=== PATIENT | male | born 1940 | race Caucasian/White ===

== ENCOUNTER 2022-04-24 10:26 | Outpatient (CLI) | payer MEDICARE, OTHER, SELFPAY ==
--- NOTE | ~2022-04-24 | US_ITS ---
EXAMINATION: US retroperitoneal comp DATE: 04/24/2022 11:15 INDICATION: BPH with lower urinary tract symptoms TECHNIQUE: Multiple grayscale and Doppler ultrasound images of the kidneys were obtained. COMPARISON: None. FINDINGS: The right kidney measures 10.7 x 5.2 cm and contains a 1.7 cm cyst. The left kidney measure s 9.1 x 5.4 x 5.2 cm and contains a 4.3 cm cyst. The kidneys demonstrate normal parenchymal echogenic ity. Bilateral ureteral jets are noted There is no hydronephrosis. The bladder is normal. IMPRESSION: 1. Unremarkable kidneys without hydronephrosis. Reviewed, dictated and finalized at location A.
== END 2022-04-24 10:27 | disposition home or self-care (01) ==
PROVIDERS: PCP Physician Assistant; Visit Provider Urology
DX: N40.1 Benign prostatic hyperplasia with lower urinary tract symptoms (principal)
CPT/HCPCS: 76770

== ENCOUNTER 2022-09-12 12:00 | Outpatient (RCR) | payer MEDICARE, OTHER, SELFPAY ==
--- NOTE | 2022-06-25 10:07 | PTOPEVAL1 ---
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 The CVA was about 1 year ago, and he has had PT since with in pt, [facility], out pt therapy. and daughter present during eval. They are caregivers to pt and assist him with all mobility and care. He uses a wheelchair for mobility, but they do go out into the community and remain active, doing home exercises, walking with a railing in the garage. The orders include aquatic therapy. With the evaluation, he has decreased strength of L LE and uses a sling on L UE due to flaccid. Sit to stand with pulling on // bar with R UE with moderate assist one; standing balance is decreased , leaning to the R and requires mod assist to stand upright; able to advance L LE with walking with substitution of leaning to the R and can hip flexion to move leg. He follows simple commands and is oriented, cooperative and wants to walk again. Skilled PT services are indicated for land and aquatic exercises- with the buoyancy effects of the water to allow motions of his L leg to increase strength, balance and mobility skills. and daughter are very supportive and assisting pt at home. Will progress his HEP and standing activity as he tolerates. Plan of Care Interventions Aquatic Therapy,Electrical Stimulation,Gait Training,Neuro Re-education,Patient/Caregiver Education,Therapeutic Activities,Therapeutic Exercise PT Services Indicated Yes Treatment Frequency and 2x/wk for 5 weeks Duration These treatments will address the objective and function
--- NOTE | 2022-07-25 10:41 | STOPEVAL1 ---
Assessment and note entered by Sakshi Ramirez PUBLIC HEALTH EPIDEMIOLOGIST Evaluation Information Assessment Status Evaluation Diagnosis Dysphagia Onset 06/20/21 Subjective Information reports that patient has always had swallowing issues since the stroke. Patient stated he feels his swallowing has worsened over the last six months. Patient knows there are foods that he has to avoid. Reported Pain Level Pain Score 0: Self Report Assessment ST Clinical Summary BEDSIDE SWALLOW EVALUATION This patient was accompanied to this outpatient evaluation by his who was the main reported. Patient reports frustration with coughing/choking mainly on meats that are shredded but admits to occasional coughing on other consistencies. Today he tolerated evaluation consistencies of thin water per cup, applesauce per spoon, and chela cracker in spite of lack of dentition. reports patient only wears dentition when going out, that he eats too quickly, and that he tends to put more food in his mouth than he can handle. All of these factors may contribute to his coughing/choking episodes. Results indicate this patient has mild dysphagia characterized as reduced strength in the swallowing muscles including base of tongue retraction, laryngeal elevation, and laryngeal adduction. Today, the patient and spouse were instructed in the use of head flexion when patient is swallowing to facilitate prevention of choking. Patient will be seen for Speech Therapy twice weekly with agreement to complete home exercise program three other days of the week for a total of five days of exercise. Additionally, therapist will instruct and reinforce use of safe swallowing strategies including eating more slowly, not filling the mouth with more than one bite before swallowing and consistent use of head flexion. VitalStim to the throat will also be instroduced in order to further improve the strength of the swallow. Plan of Care Interventions Treatment of Swallowing D Other Interventions VitalStim-neuromuscular electrical stimulation to the throat for strength. ST Services Indicated Y
--- NOTE | 2022-07-30 12:01 | PTOPPROG ---
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 Their son and daughter are helping at home with the exercises and activities. Assessment PT Clinical Summary João has received 8 PT sessions. He has improved in all areas since the initial evaluation. The aquatic exercises are doing well to assist him with movements of his leg and strength. He continues to have L side neglect. And is using a sling over his L arm for support. [place]an stim is facilitating muscle activity L LE His is very supportive and is the caregiver to pt. Goals were partially met. Continue therapy. Plan of Care Interventions Aquatic Therapy,Electrical Stimulation,Gait Training,Neuro Re-education,Patient/Caregiver Education,Therapeutic Activities,Therapeutic Exercise PT Services Indicated Yes Treatment Frequency and 2x/wk for 5 weeks Duration These treatments will address the objective and functional deficits as defined above. The patient will be advanced safely and appropriately in order for the patient to progress towards his/her prior level of function. Additional exercises will be introduced and as well as a comprehensive home exercise program upon discharge, if needed, ?to ensure carryover of functional gains achieved in the clinic. This treatment plan has been reviewed and agreement upon by the patient.
--- NOTE | 2022-08-22 16:34 | STOPDC ---
Assessment and note entered by JED Samaniego Evaluation Information Assessment Status Progress Reported Pain Level Pain Score 0: Self Report Pain Score 0: Self Report Assessment ST Clinical Summary TREATMENT SESSION AND PROGRESS NOTE Patient was seen for an initial evaluation and four treatment sessions focusing on increasing the strength of the swallow using swallowing strengthening exercises and VitalStim to the throat. Patient and report he has not choked on food or liquid in some time however he did get tickled on ice water last night. reports patient has been trying some new foods and exhibiting no difficulty with the various food items in spite of lack of dentition, including a Dragan sandwich on rye bread. Today the patient received 40 minutes of VitalStim to the throat at up to 13.0 mA with no adverse effects. The patient completed hard, effortful swallows and the Nini procedure with and without water 50+ times with no clinical signs of aspiration. He also completed other laryngeal elevation, laryngeal adduction, and base of tongue retraction exercises with good strength and effort. Since patient is completing exercises well, completes them with and without at home, and is exhibiting no clinical signs of aspiration, he is being discharged this date with goals achieved. Plan of Care ST Services Indicated No
[2022-09-03 14:19] VITALS: BP_SYST 90
--- NOTE | 2022-09-03 14:28 | PTOPPROG ---
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 Compared to the last reevaluation: gait has improved from 6 steps with mod assist x 2 to 30' with moderate assist of one, with hemicane and L AFO and SILVANO strap; is able to static stand without UE support; able to go up/down 4 steps with assist of 2; still requires mod assist sit/ stand and cues for control and correct technique. The AFO and SILVANO strap are assisting his ambulation. and family are assisting him at home with standing and exercises. They report he is doing well with in/out of the car, they assist him with L LE in/out car. The goals were partially met. Continue PT treatment--land and aquatic exercises. Plan of Care Interventions Aquatic Therapy,Electrical Stimulation,Neuro Re- education,Patient/Caregiver Education,Therapeutic Activities,Therapeutic Exercise PT Services Indicated Yes Treatment Frequency and 2x/wk for 5 weeks Duration These treatments will address the objective and functional deficits as defined above. The patient will be advanced safely and appropriately in order for the patient to progress towards his/her prior level of function. Additional exercises will be introduced and as well as a comprehensive home exercise program upon discharge, if needed, ?to ensure carryover of functional gains achieved in the clinic. This treatment plan has been reviewed and agreement upon by the patient.
--- NOTE | 2022-09-03 15:29 | OTOPEVAL1 ---
Assessment and note entered by Froylan Pascual, MALLY/Andrea, CHT Evaluation Information Assessment Status Evaluation Diagnosis CVA Onset 06/2021 Subjective Information , Nataliya, present with the patient today. She reports that João hasn't had any OT since his CVA. Has only been getting PT services to work on the leg, transfers, and balance. PT has been doing some aquatic sessions and he enjoys getting in the water. Reported Pain Level Pain Score 0: Self Report Pain Score 0: Self Report Additional Pain Score Comments Reporting no shoulder pain on the left side at rest. Reports increased shoulder pain with ROM, when his helping him get dressed, etc. Assessment OT Clinical Summary João is an 82 year-old male who had a CVA in June of 2021. Since then the upper back/neck, shoulder, and arm have become progressively tight due to non-use and decreased vision on the left side. At rest his head and neck are turned 45 degrees to the right and the arm rests in an internally rotated position on his lap. He will benefit from skilled OT for neck/shoulder/upper extremity stretching program, instruction in positioning to reduce further contractures, aquatic therapy for improved flexibility, adaptive ADL techniques to increase independence, and HEP instruction and progression as tolerated. Plan of Care Interventions Therapeutic Exercise,Manual Therapy,Neuro Re- education,Therapeutic Activities,Hot Pack/Cold Pack,Electrical Stimulation,Self-Care/Home Management,Aquatic Therapy OT Services Indicated Yes Treatment Frequency and 2x/week for 5 weeks. Duration 1x/week land. 1x/week aquatic. These treatments will address the objective and functional deficits as defined above. The patient will be advanced safely and appropriately in order for the patient to progress towards his/her prior level of function. Additional exercises will be introduced and as well as a comprehensive home exercise program upon discharge, if needed, ?to ensure carryover of functional gains achieved in the clinic. This treatment plan has been reviewed and agreement upon by the patient.
--- NOTE | 2022-09-13 15:26 | PCPTNOTE ---
This treatment is being continued on visit number [id number] . Please see documentation on both accounts to view progress. Completed interventions, outcomes, and problems have been marked as Inactive to facilitate the copying of the Care plan routine for recurring accounts.
--- NOTE | 2022-09-13 15:54 | PCOTNOTE ---
This treatment is being continued on visit number [id number]. Please see documentation on both accounts to view progress. Completed interventions, outcomes, and problems have been marked as Inactive to facilitate the copying of the Care plan routine for recurring accounts.
== END 2022-09-13 15:10 | disposition home or self-care (01) ==
LOC: ANHPT 12:00
PROVIDERS: PCP Physician Assistant; Visit Provider Hospitalist
DX: I63.9 Cerebral infarction, unspecified (principal)
CPT/HCPCS: 92526; 92610; 97110; 97112; 97113; 97116; 97162; 97166; 97530

== ENCOUNTER 2022-09-18 02:33 | Emergency (ER) | payer MEDICARE, OTHER, SELFPAY ==
[2022-09-18] VITALS (11 sets, daily range): BP systolic 143–156; BP diastolic 84–94; PULSE 82–93; RESP 16; TEMP 37.3–38.4; O2SAT 96–99
--- NOTE | ~2022-09-18 | XR_ITS ---
Portable chest x-ray Comparison: None Clinical History: Chest pain Findings: Lungs are clear, without focal consolidation or pleural effusion. Cardiomediastinal silho uette is unremarkable, with evidence of prior presumed CABG. Bones and soft tissues are unremarkable. Impression: Clear lungs. Status post probable prior CABG. Reviewed, dictated and finalized at [facility]. Impression: Clear lungs. Status post probable prior CABG.
--- NOTE | ~2022-09-18 | CT_ITS ---
Noncontrast CT scan of the cervical spine Technique: Multiple contiguous axial [address] images of the cervical spine were obtained and rec onstructed in 2D sagittal and coronal planes on the acquisition scanner. Dose reduction technique was used on this scan by utilizing automated exposure control, adjustment of the mA and/or kV according to patient size. Clinical History: Pain Findings: No fractures or dislocations. There is mild to moderate degenerative disc narrowing at C5- C6. There is facet joint degenerative changes of the cervical spine. There is bilateral neural forami nal narrowing at C3-C4. There is right neural foraminal narrowing at C5-C6. No prevertebral soft tiss ue swelling. Impression: No fracture or subluxation of the cervical spine. Mild to moderate degenerative spondylosis. Reviewed, dictated and finalized at [facility]. Impression: No fracture or subluxation of the cervical spine. Mild to moderate degenerative spondylosis.
--- NOTE | ~2022-09-18 | CT_ITS ---
CT head without contrast Indication: Trauma Technique: Serial scans were obtained through the brain without the administration of contrast. Dose reduction technique was used on this scan by utilizing automated exposure control and iterative recon struction technique. The dose-length product (DLP) was 1589.00 mGy-cm. Findings: There is no evidence of intracranial hemorrhage, mass lesion, or acute infarct. The ventri cles and subarachnoid spaces are dilated, consistent with mild atrophy. Low attenuation regions are seen within the periventricular white matter bilaterally, likely representing changes from chronic mi crovascular ischemic disease. There is no evidence of edema, mass effect or midline shift. The visu alized paranasal sinuses and mastoid air cells are clear. Impression: No intracranial hemorrhage, mass, or acute infarct. Atrophy and chronic white matter changes, as above. Reviewed, dictated and finalized at location . Impression: No intracranial hemorrhage, mass, or acute infarct. Atrophy and chronic white matter changes, as above.
--- NOTE | 2022-09-18 03:54 | ED.GENADULT ---
HPI - General Adult General Chief complaint: Fall Stated complaint: Fall, on blood thinner Time Seen by Provider: 09/18/22 03:22 History of Present Illness HPI narrative: Patient 82-year-old gentleman who presents the emergency department with chief complaint of right-sided chest pain. The patient reports that he was trying to transfer out of his wheelchair and when the chair fell out of the wheelchair and struck the right side of his chest. The patient states initially did not really hurt but reports that now it has become painful and worsening inspiration and reports that he also struck his head. Patient reports that he is on Plavix and aspirin Related Data Allergies Allergy/AdvReac Type Severity Reaction Status Date / Time Penicillins Allergy Unknown Unknown Verified 09/18/22 03:04 Course Vital Signs Vital signs: Vital Signs Temperature 38.4 C H 09/18/22 02:43 Pulse Rate 93 09/18/22 02:43 Respiratory Rate 16 09/18/22 02:43 Blood Pressure 151/84 H 09/18/22 02:43 Pulse Oximetry 96 09/18/22 02:43 Oxygen Delivery Room Air 09/18/22 02:43 Temperature 37.3 C 09/18/22 03:10 Pulse Rate 82 09/18/22 03:10 Respiratory Rate 16 09/18/22 02:43 Blood Pressure 143/86 H 09/18/22 03:10 Pulse Oximetry 98 09/18/22 03:10 Oxygen Delivery Room Air 09/18/22 02:43 Medical Decision Making [facility] Narrative Medical decision making narrative: Differential diagnosis includes rib fractures, pneumothorax, pulmonary contusions, head injury, subdural, subarachnoid, cervical spine fracture. Chest x-ray showed no evidence of displaced rib fracture and no evidence of pneumothorax. CT head and CT C-spine are currently read as negative Vital Signs Vital Signs: Vital Signs Temperature 38.4 C H 09/18/22 02:43 Pulse Rate 93 09/18/22 02:43 Respiratory Rate 16 09/18/22 02:43 Blood Pressure 151/84 H 09/18/22 02:43 Pulse Oximetry 96 09/18/22 02:43 Oxygen Delivery Room Air 09/18/22 02:43 Temperature 37.3 C 09/18/22 03:10 Pulse Rate 82 09/18/22 03:10 Respiratory Rate 16 09/18/22 02:43 Blood Pressure 143/86 H 09/18/22 03:10 Pulse Oximetry 98 09/18/22 03:10 Oxygen Delivery Room Air 09/18/22 02:43 Discharge Plan Discharge Clinical Impression: Contusion of right chest wall, Fall, Head injury Patient Disposition: Home, Self-Care Condition: Stable Instructions: Antibiotic Form, Head Injury (ED), Rib Contusion (ED) Prescriptions: New tramadol 50 mg tablet 50 mg PO Q6H PRN (Reason: pain) 3 Days Qty: 12 0RF Follow-up/Referrals: Forrest,REYES Mills Jr. [Primary Care Provider] - Time of Disposition: 05:56
[2022-09-18] MEDS: HYDROcodone/acetaminophen (*CRX) 5-325 MG TABLET 1 TAB PO (05:30)
== END 2022-09-18 06:26 | disposition home or self-care (01) ==
PROVIDERS: Emergency Provider Emergency Medicine; PCP Physician Assistant
DX: S20.211A Contusion of right front wall of thorax, initial encounter (principal); S09.90XA Unspecified injury of head, initial encounter; W05.0XXA Fall from non-moving wheelchair, initial encounter
CPT/HCPCS: 70450; 71045; 72125; 99284; A9270

== ENCOUNTER 2022-09-18 17:22 | Inpatient (IN) | payer MEDICARE, OTHER, SELFPAY ==
--- NOTE | ~2022-09-18 | XR_ITS ---
EXAMINATION: XR barium swallow modified DATE: 09/19/2022 14:30 INDICATION: Dysphagia. TECHNIQUE: The patient was given barium-containing material of multiple consistencies to swallow by t tom speech pathologist while I performed fluoroscopy. Fluoroscopy exposure time was 1.0 minutes. The n umber of fluoroscopy images saved to the PACS was 1. Dose-area product was 0.593 Gy-cm^2. FINDINGS: There is decreased oral transit time. There is reduced laryngeal elevation and reduced tongue base re traction. There is premature spill into the vallecula and piriform sinuses prior to the swallow. Ther e is piriform sinus residue and pharyngeal wall residue. There is laryngeal penetration with thin liq uids via cup. IMPRESSION: 1. Laryngeal penetration with thin liquids via cup. 2. Please refer to the speech therapy report for recommendations. Reviewed, dictated and finalized at location A.
--- NOTE | ~2022-09-18 | XR_ITS ---
EXAMINATION: XR chest 1V portable Exam Date/Time: 09/18/2022 19:17 CDT HISTORY: Hemoptysis following rib trauma Comparison: 09/18/2022 at 3:47 AM. RESULT: Lines, tubes, and devices: Intact sternotomy wires. Lungs and pleura: Slightly low volumes. Streaky bibasilar scar/atelectasis. Cardiomediastinal silhouette: Stable. Other: No acute osseous or upper abdominal finding. IMPRESSION: No acute cardiopulmonary process. Reviewed, dictated and finalized at location K.
--- NOTE | ~2022-09-18 | US_ITS ---
EXAMINATION:US venous doppler LE BI INDICATION:Deep venous thrombosis TECHNIQUE: Multiple grayscale, color flow and Doppler images of the right and left lower extremity de ep venous systems were obtained and reviewed. COMPARISON:No prior studies for comparison. FINDINGS: The common femoral, superficial femoral and popliteal veins demonstrate normal respiratory variation, augmentation and compressibility. Color flow is also seen within the posterior tibial, pe roneal, greater saphenous and profunda veins. IMPRESSION: 1: No lower extremity deep venous thrombosis. Reviewed, dictated and finalized at location A.
--- NOTE | ~2022-09-18 | CT_ITS ---
EXAMINATION: CTA chest PE protocol DATE: 09/18/2022 21:43 INDICATION: Hemoptysis. recent R ant rib injury. TECHNIQUE: Computed tomography angiography (CTA) of the chest was performed with 100 mL Omnipaque-350 intravenous contrast timed to evaluate the pulmonary arteries. Coronal maximum intensity projection 3D-reconstructions were created by the technologist. The dose-length product (DLP) was 626.81 mGy-cm. Automated exposure control and iterative reconstruction technique were employed. COMPARISON: X-ray chest, same date. FINDINGS: Lung parenchyma and airways: Small focus of airway debris in the upper trachea. Fine and coarse retic ular opacities with surrounding groundglass opacities in the dependent right lung. Bibasilar scar and atelectasis. Calcified pulmonary granulomas. Pleura: Unremarkable. Thoracic inlet, axillae and chest wall: Intact median sternotomy wires. Thoracic aorta: Mild ectasia and arch calcification. Mediastinum: Central pulmonary artery dilation as can be seen with pulmonary arterial hypertension. Heart and pericardium: Mild cardiomegaly. Coronary artery calcifications: Mild. Upper abdomen: No significant finding. Bones: No acute osseous finding. Pulmonary arteries: Study quality: Adequate. Multiple segmental and subsegmental emboli are present i n most lobes, with the exception of the right middle lobe. No large central embolus. Small saddle emb olus straddling right upper lobe and superior segment right lower lobe segmental branches. Occlusive emboli are present in right lower lobe segmental branches. The RV/LV ratio is less than 1. No septal bowing. No hepatic vein reflux. IMPRESSION: Multiple bilateral segmental and subsegmental pulmonary emboli, overall moderate clot burden. Occlusi ve segmental pulmonary emboli present in the right lower lobe where there is likely pulmonary infarct affecting the posterior/basal segments. No current evidence of right heart strain. Small focus of ae rated secretion/debris in the upper trachea. Results reported telephonically to Dr. Badillo by Dr. Ordonez at 10:10 PM on 09/18/2022. Reviewed, dictated and finalized at location K. IMPRESSION: Multiple bilateral segmental and subsegmental pulmonary emboli, overall moderat e clot burden. Occlusive segmental pulmonary emboli present in the right lower lobe where there is likely pulmonary infarct affecting the posterior/basal segm ents. No current evidence of right heart strain. Small focus of aerated secreti on/debris in the upper trachea. Results reported telephonically to Dr. Badillo by Dr. Ordonez at 10:10 PM on 023.
--- NOTE | ~2022-09-18 | US_ITS ---
EXAMINATION: US venous doppler UE DATE: 09/20/2022 14:29 INDICATION: Acute pulmonary emboli. Left upper limb weakness and mobility. TECHNIQUE: Grayscale ultrasound images without and with compression and Doppler ultrasound images of the left upper extremity veins were obtained. COMPARISON: None. FINDINGS: The visualized portions of the left internal jugular vein, subclavian vein, axillary vein, brachial v eins, basilic vein, cephalic vein, radial vein, and ulnar vein are patent. IMPRESSION: 1. No deep venous thrombosis. Reviewed, dictated and finalized at location A.
[2022-09-18 17:32] VITALS: BP 142/75; PULSE 77; RESP 16; TEMP 37; O2SAT 100
[2022-09-18 21:05] LABS: Basophils Percent Auto 0.3 % (0.2-1.2); Hematocrit 41.7 % (42.0-52.0); Hemoglobin 13.4 g/dL (14.0-18.0); Immature Granulocyte Absolute 0.07 K/mm3 (0.00-0.031); Immature Granulocyte Percent A 0.6 % (0-0.5); Mean Corpuscular HGB Conc 32.1 g/dl (32-36); Mean Corpuscular Hemoglobin 29.5 pg (26-34); Mean Corpuscular Volume 91.6 fl (80-100); Mean Platelet Volume 10.8 fl (7.4-10.4); Monocytes Absolute Auto 1.6 K/mm3 (0.1-0.6); Monocytes Percent Auto 12.7 % (2.6-8.5); Neutrophils Absolute Auto 9.4 K/mm3 (1.3-6.7); Neutrophils Percent Auto 77.4 % (45.5-73.1); Platelet Count Result 188 k/mm3 (150-375); Red Blood Count 4.55 M/mm3 (4.6-6.20); White Blood Count 12.2 K/mm3 (4.5-10.0)
--- NOTE | 2022-09-18 21:05 | ED.GENADULT ---
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 Patient fell out of his Wheelchair yesterday. He was then seen in our emergency department where his workup was negative for traumatic injuries. He was discharged home his family feels that he has not returned to his baseline. Additionally his has noted that he has had hemoptysis. He has been unable to use his incentive spirometer as he is in too much pain when he breathes in. Patient is denying fevers, cough, shortness of breath, abdominal pain. She did note that his urine seemed very dark. He denies urinary urgency frequency or dysuria. Patient is on aspirin and Plavix for heart disease. Related Data Allergies Allergy/AdvReac Type Severity Reaction Status Date / Time Penicillins Allergy Unknown Unknown Verified 09/18/22 17:36 REPLACED BY [facility] Past Medical History Medical History CAD (coronary artery disease) CVA (cerebral vascular accident) Social History Social History (Updated 09/18/22 @ 23:11 by Lalo Conley MD) Social History: Denies drugs alcohol tobacco Exam Narrative: APPEARANCE: No apparent distress. Head: atraumatic. EYES: EOMI, NOSE: Atraumatic NECK: Trachea midline RESPIRATORY: No increased rate of breathing clear to auscultation CARDIOVASCULAR: RRR,, no peripheral edema, tenderness palpation with right anterior chest wall with no overlying skin changes ABDOMINAL: Non-distended MUSCULOSKELETAl: No obvious deformities NEURO: Alert. left-sided hemiplegia SKIN:: Warm, dry. Normal color PSYCHIATRIC: Normal affect Course Vital Signs Vital signs: Vital Signs Temperature 98.6 F 09/18/22 17:32 Pulse Rate 77 09/18/22 17:32 Respiratory Rate 16 09/18/22 17:32 Blood Pressure 142/75 H 09/18/22 17:32 Pulse Oximetry 100 09/18/22 17:32 Oxygen Delivery Room Air 09/18/22 17:32 Temperature 98.6 F 09/18/22 17:32 Pulse Rate 77 03/15/23 17:32 Respiratory Rate 16 09/18/22 17:32 Blood Pressure 142/75 H 09/18/22 17:32 Pulse Oximetry 100 09/18/22 17:32 Oxygen Delivery Room Air 09/18/22 17:32 Medical Decision Making MDM Narrative Medical decision making narrative: -Presentation: 82-year-old male bouncing back with chest pain following a fall. Patient has been having hemoptysis, he is relatively immobile due to his CVA. Lab work, CT PE and urinalysis have been ordered. -DDX includes but is not limited to: Rib fracture with lung injury, pneumonia,pulmonary embolism, UTI -Co-morbidities complicating care: CVA with left-sided hemiplegia -Social determinants of health: patient lives with his who is his primary glass cutter. He is retired. -External Chart Review: Previous ER documents -Hx from independent Sources: Ольга -Discussion of Management/Consultants:Ric -hospitalist -Independent interpretation of studies: white blood cell count is 12.2. Metabolic panelwas within normal limits. urine was positive for 21-50 rbc's but negative nitrite, leuk esterase and bacteria. Viral swabs were negative. Independent EKG interpretation: Rhythm [sinus], Rate [], Ronce[place] -[normal], TN -[normal], QRS [narrow], QTC [normal], T waves -[negative for concerning inversions], ST Segments - [Negative for concerning elevations] Final interpretations: [Normal Sinus Rhythm] Chest xray was negative. CT PE was interpreted as: Multiple bilateral segmental and subsegmental pulmonary emboli, overall moderate clot burden. Occlusive segmental pulmonary emboli present in the right lower lobe where there is likely pulmonary infarct affecting the posterior/basal segments. No current evidence of right heart
[2022-09-18 21:23] LABS: Alanine Aminotransferase 14 U/L (6-50); Albumin Level 4.2 g/dL (3.5-5.1); Alkaline Phosphatase 49 U/L (38-126); Anion Gap 5 mmol/L (8-16); Aspartate Amino Transferase 23 U/L (17-59); Blood Urea Nitrogen 21 mg/dL (9-20); Calcium 8.8 mg/dL (8.4-10.2); Carbon Dioxide 28 mmol/L (22-30); Chloride 102 mmol/L (98-107); Estimated CRCL calculation 58 ml/min; Estimated Glomerular Filt Rate > 60; Glucose 136 mg/dL (65-110); Lipase 28 U/L (23-300); Magnesium 2.1 mg/dL (1.6-2.3); Potassium 4.4 mmol/L (3.4-5.0); Sodium 135 mmol/L (137-145)
[2022-09-18] MEDS: SODIUM CHLORIDE 0.9% IV 1,000 ML 999 ML IV CONT (21:24)
[2022-09-18 21:40] LABS: Influenza A QL RT-PCR Negative (Negative); Influenza B QL RT-PCR Negative (Negative); RSV RNA, RT-PCR Negative (Negative); SARS-CoV-2 RNA PCR Negative
[2022-09-18 22:45] LABS: Appearance Urine Clear (Clear); Bacteria Urine None Seen /hpf; Bilirubin Urine Negative (Negative); Blood Urine 2+ (Negative); Color Urine Yellow (Yellow); Glucose Urine UA Negative (Negative); Ketones Urine Negative (Negative); Leukocyte Esterase Ur Negative LEU/UL (Negative); Nitrate Urine Negative (Negative); Protein Urine 1+ mg/dL (Negative); RBC Urine 21-50 /hpf (0-2); Squamous Epithelial Cell Urine None seen /hpf (Few); WBC Urine 0-5 /hpf
[2022-09-18 22:55] LABS: Specific Grav Ur 1.055 (1.001-1.035)
[2022-09-18 23:00] VITALS: BP 150/90; PULSE 77; PULSE 80; RESP 24; O2SAT 96
[2022-09-18 23:13] LABS: Add Urine Microscopic? YES
--- NOTE | 2022-09-18 23:15 | PC.NURSE ---
Assumed care of pt. at this time. Report from ENRIQUE Steele
--- NOTE | 2022-09-18 23:25 | PM.IMHP ---
H&P: HPI History of Present Illness Date/Time: 09/18/22 23:25 Chief Complaint: 82 years old male with past medical history of CVA coronary artery disease on aspirin Plavix had a fall area today associated with chest pain was treated for contusion and sent home patient had episode of hemoptysis came back to the ER patient denies large amount of hemoptysis or clots has streaks of blood with sputum patient still have chest pain CT scan of the chest was done shows multiple bilateral pulmonary embolism patient was started on heparin drip admitted to the hospital for further evaluation and treatment Review of Systems Review of Systems: Twelve system review was done negative except above PMFSH Past Medical History Medical History CAD (coronary artery disease) CVA (cerebral vascular accident) Social History Social History Social History: Denies drugs alcohol tobacco Meds Home Medications and Allergies Home Medications Medication Instructions Recorded Confirmed Type tramadol 50 mg tablet 50 mg PO Q6H PRN pain 3 days #12 09/18/22 Rx tabs Allergies Allergy/AdvReac Type Severity Reaction Status Date / Time Penicillins Allergy Unknown Unknown Verified 09/18/22 17:36 Vital Signs Vital Signs - 24 hr 09/18/22 17:32 Temperature 98.6 F Pulse Rate 77 Respiratory Rate 16 Blood Pressure 142/75 H Pulse Oximetry 100 Oxygen Delivery Room Air Exam Narrative: GENERAL: Well appearing, well-nourished, non-toxic, in no acute distress. HEAD: Normocephalic, atraumatic. NECK: Supple. No adenopathy, no masses. RESPIRATORY: Airway patent, respirations nonlabored. Clear to auscultation bilaterally, no rales, rhonchi, wheezing. CARDIOVASCULAR: Regular rate and rhythm without murmurs, rubs, or gallops. Peripheral pulses 2+ and equal bilaterally. ABDOMINAL: Soft, nontender, nondistended, no hepatosplenomegaly. Normoactive BS. MUSCULOSKELETAL: Moves all extremities. Strength/ROM intact without gross deformities or TTP. No edema. No calf tenderness. No chest wall tenderness palpation. SKIN: Warm, dry, normal color. No rashes. NEURO: Pre-existing weakness. PSYCHIATRIC: Appropriate mood and affect. Normal interaction. H&P: Results Labs Labs: Short CBC 09/18/22 Range/Units 20:54 WBC 12.2 H (4.5-10.0) K/mm3 Hgb 13.4 L (14.0-18.0) g/dL Hct 41.7 L (42.0-52.0) % Plt Count 188 (150-375) k/mm3 BMP 09/18/22 20:54 Sodium 135 L Potassium 4.4 Chloride 102 Carbon Dioxide 28 BUN 21 H Creatinine 0.90 Glucose 136 H Calcium 8.8 Liver Function 09/18/22 Range/Units 20:54 Total Bilirubin 1.0 (0.2-1.3) mg/dL AST 23 (17-59) U/L ALT 14 (6-50) U/L Alkaline Phosphatase 49 (38-126) U/L Albumin 4.2 (3.5-5.1) g/dL Urine 09/18/22 Range/Units 22:36 Urine Color Yellow (Yellow) Urine Appearance Clear (Clear) Urine pH 5.0 (5.0-9.0) Ur Specific [place] 1.055 H (1.001-1.035) Urine Protein 1+ H (Negative) mg/dL Urine Glucose (UA) Negative (Negative) mg/dL Assessment and Plan Assessment and plan (1) CAD (coronary artery disease): Code(s): I25.10 - Atherosclerotic heart disease of [place] coronary artery without angina pectoris Status: Acute Assessment and Plan: At home patient was on aspirin and Plavix probably resume either aspirin or Plavix as patient now will need oral anticoagulation a.m. team to address once hemoptysis improved (2) CVA (cerebral vascular accident): Code(s): I63.9 - Cerebral infarction, unspecified Status: Acute Assessment and Plan: Pending home medication reconciliation (3) Contusion of right chest wall: Code(s): S20.211A - Contusion of right front wall of thorax, initial encounter Status: Acute Assessment and Plan: Pain control (4) Fall:
--- NOTE | 2022-09-18 23:42 | ED.GENADULT ---
HPI - General Adult General Chief complaint: Unspecified Stated complaint: coughing up blood post fall with rib contusion Time Seen by Provider: 09/18/22 19:15 Related Data Allergies Allergy/AdvReac Type Severity Reaction Status Date / Time Penicillins Allergy Unknown Unknown Verified 09/18/22 17:36 [facility] Past Medical History Medical History CAD (coronary artery disease) CVA (cerebral vascular accident) Social History Social History Social History: Denies drugs alcohol tobacco Course Vital Signs Vital signs: Vital Signs Temperature 98.6 F 09/18/22 17:32 Pulse Rate 77 09/18/22 17:32 Respiratory Rate 16 09/18/22 17:32 Blood Pressure 142/75 H 09/18/22 17:32 Pulse Oximetry 100 09/18/22 17:32 Oxygen Delivery Room Air 09/18/22 17:32 Temperature 98.6 F 09/18/22 17:32 Pulse Rate 77 09/18/22 17:32 Respiratory Rate 16 09/18/22 17:32 Blood Pressure 142/75 H 09/18/22 17:32 Pulse Oximetry 100 09/18/22 17:32 Oxygen Delivery Room Air 09/18/22 17:32 Medical Decision Making Vital Signs Vital Signs: Vital Signs Temperature 98.6 F 09/18/22 17:32 Pulse Rate 77 09/18/22 17:32 Respiratory Rate 16 09/18/22 17:32 Blood Pressure 142/75 H 09/18/22 17:32 Pulse Oximetry 100 09/18/22 17:32 Oxygen Delivery Room Air 09/18/22 17:32 Temperature 98.6 F 09/18/22 17:32 Pulse Rate 77 09/18/22 17:32 Respiratory Rate 16 09/18/22 17:32 Blood Pressure 142/75 H 09/18/22 17:32 Pulse Oximetry 100 09/18/22 17:32 Oxygen Delivery Room Air 09/18/22 17:32 Lab Data 09/18/22 20:54 09/18/22 20:54 Labs: Lab Results 09/18/22 09/18/22 09/18/22 Range/Units 20:54 20:54 20:54 WBC 12.2 H (4.5-10.0) K/mm3 RBC 4.55 L (4.6-6.20) M/mm3 Hgb 13.4 L (14.0-18.0) g/dL Hct 41.7 L (42.0-52.0) % MCV 91.6 (80-100) fl MCH 29.5 (26-34) pg MCHC 32.1 (32-36) g/dl RDW 14.0 (11.5-14.5) % Plt Count 188 (150-375) k/mm3 MPV 10.8 H (7.4-10.4) fl Immature Gran % (Auto) 0.6 H (0-0.5) % Neut % (Auto) 77.4 H (45.5-73.1) % Lymph % (Auto) 9.0 L (18.3-44.2) % [place] % (Auto) 12.7 H (2.6-8.5) % Eos % (Auto) 0.0 (0-4.4) % Baso % (Auto) 0.3 (0.2-1.2) % Lymph # (Auto) 1.10 (0.9-3.2) K/mm3 [place] # (Auto) 1.6 H (0.1-0.6) K/mm3 Eos # (Auto) 0.0 (0-0.3) K/mm3 Baso # (Auto) 0.0 (0.0-0.1) K/mm3 Abs Immat Gran (auto) 0.07 H (0.00-0.031) K/mm3 Absolute Neuts (auto) 9.4 H (1.3-6.7) K/mm3 Absolute Nucleated RBC 0.0 (0.0-0.012) K/mm3 Nucleated RBC % 0.0 (0.0-0.2) % Sodium 135 L (137-145) mmol/L Potassium 4.4 (3.4-5.0) mmol/L Chloride 102 (98-107) mmol/L Carbon Dioxide 28 (22-30) mmol/L Anion Gap 5 L (8-16) mmol/L BUN 21 H (9-20) mg/dL Creatinine 0.90 (0.7-1.3) mg/dL Estim Creat Clear Calc 58 ml/min Estimated GFR > 60 (59 - ) Glucose 136 H (65-110) mg/dL Calcium 8.8 (8.4-10.2) mg/dL Magnesium 2.1 (1.6-2.3) mg/dL Total Bilirubin 1.0 (0.2-1.3) mg/dL AST 23 (17-59) U/L ALT 14 (6-50) U/L Alkaline Phosphatase 49 (38-126) U/L Troponin I NT-Pro-B Natriuret Pep Total Protein 8.0 (6.3-8.2) g/dL Albumin 4.2 (3.5-5.1) g/dL Lipase 28 (23-300) U/L Urine Color (Yellow) Urine Appearance (Clear) Urine pH (5.0-9.0) Ur Specific [place] (1.001-1.035) Urine Protein (Negative) mg/dL Urine Glucose (UA) (Negative) mg/dL Urine Ketones (Negative) mg/dL Ur Blood (Man) (Negative) Urine Nitrate (Negative) Urine Bilirubin (Negative) Urine Urobilinogen (<2.0) mg/dL Leukocyte Esterase Rfl (Negative) DESIRE/UL Urine RBC (0-2) /hpf Urine WBC /hpf Ur Squamous Epith Cells (Few) /hpf Urine
[2022-09-18 23:43] LABS: NT Pro B Type Natriuretic Pept 1020 pg/mL (19.9-100); Troponin I < 0.012 ng/mL (0.000-0.034)
[2022-09-18 23:48] VITALS: PULSE 77; RESP 23; O2SAT 97
[2022-09-18 23:57] VITALS: BP 150/90; PULSE 81; RESP 21; O2SAT 95
[2022-09-19] VITALS (15 sets, daily range): BP systolic 103–186; BP diastolic 55–83; PULSE 77–93; RESP 14–25; TEMP 36.9–37.7; O2SAT 95–97
--- NOTE | 2022-09-19 00:13 | PC.NURSE ---
Pt. took Pts bag of belongings along with his shirt and wheelchair.
[2022-09-19 00:31] LABS: INR 1.4; Prothrombin Time 16.5 Seconds (11.1-14.7)
[2022-09-19 00:32] LABS: Partial Thromboplastin Time 39.4 SECONDS (22.3-36.8)
[2022-09-19 00:47] LABS: Lactic Acid Reflex 0.7 mmol/L (0.7-2.0)
[2022-09-19] MEDS: HEPARIN SOD/D5W 100 UNITS/ML 25,000 UNITS/250 ML BAG 15 UNITS IV CONT (01:30)
[2022-09-19] MEDS: HEPARIN SODIUM 5,000 UNITS/ML VIAL 6500 UNITS IV PUSH (01:30)
--- NOTE | 2022-09-19 02:34 | ADMGEN ---
This patient, João Smith, was admitted to 3 [facility] Surg Room 323-02. Patient/family oriented to hospital policies and general routines including ID bracelet, bed and alarms, visiting hours, pain management, procedures, bathroom and other care routines, personal items, smoking policy, room service/diet, and visiting hours. Information on how to activate the Rapid Response Team has been discussed. Patient/Family are encouraged to report perceived risks to care and to ask questions if they do not understand what they are told or what they should do.
[2022-09-19 08:57] LABS: Basophils Absolute Auto 0.1 K/mm3 (0.0-0.1); Basophils Percent Auto 0.4 % (0.2-1.2); Eosinophils Percent Auto 0.2 % (0-4.4); Hematocrit 39.5 % (42.0-52.0); Hemoglobin 12.6 g/dL (14.0-18.0); Immature Granulocyte Absolute 0.08 K/mm3 (0.00-0.031); Immature Granulocyte Percent A 0.6 % (0-0.5); Lymphocytes Absolute Auto 1.36 K/mm3 (0.9-3.2); Lymphocytes Percent Auto 10.7 % (18.3-44.2); Mean Corpuscular HGB Conc 31.9 g/dl (32-36); Mean Corpuscular Hemoglobin 29.1 pg (26-34); Mean Corpuscular Volume 91.2 fl (80-100); Mean Platelet Volume 11.1 fl (7.4-10.4); Monocytes Absolute Auto 1.7 K/mm3 (0.1-0.6); Monocytes Percent Auto 13.5 % (2.6-8.5); Neutrophils Absolute Auto 9.5 K/mm3 (1.3-6.7); Neutrophils Percent Auto 74.6 % (45.5-73.1); Platelet Count Result 166 k/mm3 (150-375); Red Blood Count 4.33 M/mm3 (4.6-6.20); Red Cell Distribution Width 13.8 % (11.5-14.5); White Blood Count 12.7 K/mm3 (4.5-10.0)
[2022-09-19 09:07] LABS: Alanine Aminotransferase 14 U/L (6-50); Alkaline Phosphatase 65 U/L (38-126); Anion Gap 5 mmol/L (8-16); Aspartate Amino Transferase 17 U/L (17-59); Bilirubin,Total 0.9 mg/dL (0.2-1.3); Blood Urea Nitrogen 17 mg/dL (9-20); Calcium 8.7 mg/dL (8.4-10.2); Carbon Dioxide 27 mmol/L (22-30); Chloride 103 mmol/L (98-107); Estimated CRCL calculation 53 ml/min; Estimated Glomerular Filt Rate > 60; Glucose 106 mg/dL (65-110); Potassium 3.7 mmol/L (3.4-5.0); Sodium 135 mmol/L (137-145)
[2022-09-19 09:32] LABS: Partial Thromboplastin Time > 200.0 SECONDS (22.3-36.8)
[2022-09-19] MEDS: PERFLUTREN LIPID MICROSPHERES 1.5 ML VIAL DILUTED TO 10 ML TOTAL VOLUME IV PUSH (10:00)
[2022-09-19] MEDS: ASPIRIN 81 MG CHEWABLE TABLET PO (10:27)
[2022-09-19] MEDS: TAMSULOSIN HCL 0.4 MG CAPSULE PO (10:27)
[2022-09-19] MEDS: DULoxetine HCL 30 MG CAPSULE.DR PO (10:27)
[2022-09-19] MEDS: METOPROLOL SUCCINATE EXT REL 25 MG TABCR PO (10:28)
[2022-09-19] MEDS: FAMOTIDINE 20 MG TABLET PO ×2 (13:43→20:27)
[2022-09-19] MEDS: guaiFENesin 12 HR 600 MG TABCR PO ×2 (13:44→20:27)
--- NOTE | 2022-09-19 13:53 | PM.IMPN ---
Progress Note: A&P Assessment and Plan (1) CAD (coronary artery disease): Code(s): I25.10 - Atherosclerotic heart disease of [place] coronary artery without angina pectoris Status: Acute Assessment and Plan: At home patient was on aspirin and Plavix probably resume either aspirin or Plavix as patient now will need oral anticoagulation a.m. team to address once hemoptysis improved HPI-Chief Complaint:shortness of breath and hemoptysis 82 years old male with past medical history of CVA coronary artery disease on aspirin Plavix had a fall area today associated with chest pain was treated for contusion and sent home patient had episode of hemoptysis came back to the ER patient denies large amount of hemoptysis or clots has streaks of blood with sputum patient still have chest pain CT scan of the chest was done shows multiple bilateral pulmonary embolism patient was started on heparin drip admitted to the hospital for further evaluation and treatment 09/19/2022 interval history: 82-year-old male with history of CABG and stroke he was told that his high risk of blood clots, patient is taking Plavix and aspirin at home, patient presented with shortness of breath and hemoptysis is found to have pulmonary emboli started the patient on heparin drip, to further evaluate patient had cardiac echo, did not show any right side heart strain, will continue to monitor switch over to Eliquis or Xarelto tomorrow and further recommendation to follow. is present in the room answered all her questions (2) CVA (cerebral vascular accident): Code(s): I63.9 - Cerebral infarction, unspecified Status: Acute Assessment and Plan: Pending home medication reconciliation (3) Contusion of right chest wall: Code(s): S20.211A - Contusion of right front wall of thorax, initial encounter Status: Acute Assessment and Plan: Pain control (4) Fall: Code(s): W19.XXXA - Unspecified fall, initial encounter Status: Acute Assessment and Plan: PT OT evaluation (5) Pulmonary embolism: Code(s): I26.99 - Other pulmonary embolism without acute cor pulmonale Status: Acute Assessment and Plan: CT scan as below Multiple bilateral segmental and subsegmental pulmonary emboli, overall moderate clot burden. Occlusive segmental pulmonary emboli present in the right lower lobe where there is likely pulmonary infarct affecting the posterior/basal segments. No current evidence of right heart strain. Small focus of aerated secretion/debris in the upper trachea Follow echo results No evidence of right ventricular strain pattern. Blood pressure stable Complicated decision as patient also has mild hemoptysis which is expected most likely from pulmonary infarct Heparin drip was started Follow CBC Subjective Date/time seen: 09/19/22 13:53 HPI-Chief Complaint:shortness of breath and hemoptysis 82 years old male with past medical history of CVA coronary artery disease on aspirin Plavix had a fall area today associated with chest pain was treated for contusion and sent home patient had episode of hemoptysis came back to the ER patient denies large amount of hemoptysis or clots has streaks of blood with sputum patient still have chest pain CT scan of the chest was done shows multiple bilateral pulmonary embolism patient was started on heparin drip admitted to the hospital for further evaluation and treatment 09/19/2022 interval history: 82-year-old male with history of CABG and stroke he was told that his high risk of blood clots, patient is taking Plavix and aspirin at home, patient presented with shortness of breath and hemoptysis is found to have pulmonary emboli started the patient on heparin drip, to further evaluate patient had cardiac echo, did not show any right side heart strain, will continue to monitor switch over to Eliquis or Xarelto tomorrow and further recommendation to follow. is present in
[2022-09-19] MEDS: ACETAMINOPHEN 325 MG TABLET 650 MG PO (15:23)
--- NOTE | 2022-09-19 15:53 | PCSTNOTE ---
Please refer to the Modified Barium Swallow Evaluation in the EMR.
[2022-09-19] MEDS: HEPARIN SOD/D5W 100 UNITS/ML 25,000 UNITS/250 ML BAG 13 UNITS IV CONT (16:42)
[2022-09-19 18:53] LABS: Partial Thromboplastin Time 170.6 SECONDS (22.3-36.8)
[2022-09-19] MEDS: SIMVASTATIN 20 MG TABLET 80 MG PO (20:27)
--- NOTE | 2022-09-19 23:41 | ECHO_ITS ---
Patient Info Name: João Smith Age: 82 years : 1940 Gender: Male Ht: 70 in Wt: 190 lbs BSA: 2.08 m2 HR: 90 bpm BP: 148 / 83 mmHg Heart Rhythm: Tachycardia Technical Quality: Fair Exam Date: 09/19/2022 9:26 AM Exam Location: [facility] Pulmonary Exam Room: 323 Patient Status: Inpatient Admit Date: 09/18/2022 Staff Ordering Physician: Sabrina Conde M.A., MD [employer] Operator: Ananya Carlisle RDCS Attending Provider: Sabrina Conde M.A., MD Referring Physician: Enrike ZAMORA; Exam Type: CA echo dop color flow w con Study Info Indications - pulmonary embolism Complete two-dimensional, color flow and Doppler transthoracic echocardiogram is performed with contrast to opacify the left ventricle and to improve the deliniation of the left ventricle endocardial borders. Contrast/Agitated Saline Contrast/Ag. Saline: Definity Amount: 2.00 ml Administered By: Ananya Carlisle [facility] Existing IV Access: Yes Summary 1. Left ventricular chamber dimension is normal. 2. Left ventricular systolic function is normal, estimated at 55-60%. 3. Left ventricular septal wall motion is abnormal with septal motion related to bundle branch block. 4. The left ventricular diastolic function is grade I diastolic dysfunction. 5. Right ventricular chamber dimension is normal. 6. Right ventricular systolic function is normal. 7. The mitral valve annulus is mildly calcified. 8. There is trace mitral valve regurgitation. 9. There is trace tricuspid valve regurgitation. 10. There is trace pulmonic regurgitation. Left Ventricle Left ventricular chamber dimension is normal. Left ventricular systolic function is normal, estimated at 55-60%. There is no increased left ventricular wall thickness. Left ventricular septal wall motion is abnormal with septal motion related to bundle branch block. The left ventricular diastolic function is grade I diastolic dysfunction. Right Ventricle Right ventricular chamber dimension is normal. Right ventricular systolic function is normal. Left Atria Left atrial chamber dimension is normal. Right Atria Right atrial chamber dimension is normal. Atrial Septum Intact interatrial septum visualized by color flow imaging. Aortic Valve The aortic valve is trileaflet. There is no aortic valve stenosis. There is no aortic valve regurgitation. Pulmonic Valve The pulmonic valve is normal. There is trace pulmonic regurgitation. Mitral Valve The mitral valve has normal leaflets. There is no mitral valve stenosis. There is trace mitral valve regurgitation. The mitral valve annulus is mildly calcified. Tricuspid Valve There is no significant tricuspid valve stenosis. There is trace tricuspid valve regurgitation. Pericardium/Pleural There is no pericardial effusion. Inferior Vena Cava Inferior vena cava is not well visualized. Aorta The aortic root size at the sinus of Valsalva is normal. Left Ventricular Outflow Tract Name Value Normal LVOT 2D LVOT Diameter 2.07 cm LVOT Doppler LVOT Peak Gradient
[2022-09-20] VITALS (9 sets, daily range): BP systolic 103–144; BP diastolic 56–84; PULSE 83–100; RESP 16–18; TEMP 36.6–37.3; O2SAT 93–96
[2022-09-20 00:13] LABS: Hematocrit 34.6 % (42.0-52.0); Hemoglobin 10.9 g/dL (14.0-18.0)
[2022-09-20 03:21] LABS: Basophils Absolute Auto 0.1 K/mm3 (0.0-0.1); Basophils Percent Auto 0.5 % (0.2-1.2); Eosinophils Absolute Auto 0.1 K/mm3 (0-0.3); Eosinophils Percent Auto 0.5 % (0-4.4); Hematocrit 36.1 % (42.0-52.0); Hemoglobin 11.7 g/dL (14.0-18.0); Immature Granulocyte Absolute 0.09 K/mm3 (0.00-0.031); Immature Granulocyte Percent A 0.8 % (0-0.5); Lymphocytes Percent Auto 12.7 % (18.3-44.2); Mean Corpuscular HGB Conc 32.4 g/dl (32-36); Mean Corpuscular Hemoglobin 29.2 pg (26-34); Mean Platelet Volume 11.3 fl (7.4-10.4); Monocytes Absolute Auto 1.4 K/mm3 (0.1-0.6); Monocytes Percent Auto 12.8 % (2.6-8.5); Neutrophils Percent Auto 72.7 % (45.5-73.1); Platelet Count Result 160 k/mm3 (150-375); Red Blood Count 4.01 M/mm3 (4.6-6.20); Red Cell Distribution Width 13.8 % (11.5-14.5)
[2022-09-20 03:52] LABS: Alanine Aminotransferase 16 U/L (6-50); Albumin Level 3.6 g/dL (3.5-5.1); Alkaline Phosphatase 64 U/L (38-126); Anion Gap 5 mmol/L (8-16); Aspartate Amino Transferase 22 U/L (17-59); Bilirubin,Total 0.8 mg/dL (0.2-1.3); Blood Urea Nitrogen 22 mg/dL (9-20); Calcium 8.3 mg/dL (8.4-10.2); Carbon Dioxide 27 mmol/L (22-30); Chloride 104 mmol/L (98-107); Estimated CRCL calculation 48 ml/min; Estimated Glomerular Filt Rate > 60; Glucose 103 mg/dL (65-110); Potassium 3.5 mmol/L (3.4-5.0); Sodium 136 mmol/L (137-145)
[2022-09-20] MEDS: DULoxetine HCL 30 MG CAPSULE.DR PO (09:19)
[2022-09-20] MEDS: METOPROLOL SUCCINATE EXT REL 25 MG TABCR PO (09:19)
[2022-09-20] MEDS: TAMSULOSIN HCL 0.4 MG CAPSULE PO (09:19)
[2022-09-20] MEDS: FAMOTIDINE 20 MG TABLET PO ×2 (09:19→21:11)
[2022-09-20] MEDS: ASPIRIN 81 MG CHEWABLE TABLET PO (09:19)
[2022-09-20] MEDS: guaiFENesin 12 HR 600 MG TABCR PO ×2 (09:19→21:11)
[2022-09-20 09:21] LABS: Partial Thromboplastin Time 71.8 SECONDS (22.3-36.8)
[2022-09-20] MEDS: ACETAMINOPHEN 325 MG TABLET 650 MG PO (11:04)
--- NOTE | 2022-09-20 14:29 | PM.IMPN ---
Progress Note: A&P Assessment and Plan (1) CAD (coronary artery disease): Code(s): I25.10 - Atherosclerotic heart disease of [place] coronary artery without angina pectoris Status: Acute Assessment and Plan: At home patient was on aspirin and Plavix probably resume either aspirin or Plavix as patient now will need oral anticoagulation a.m. team to address once hemoptysis improved HPI-Chief Complaint:shortness of breath and hemoptysis 82 years old male with past medical history of CVA coronary artery disease on aspirin Plavix had a fall area today associated with chest pain was treated for contusion and sent home patient had episode of hemoptysis came back to the ER patient denies large amount of hemoptysis or clots has streaks of blood with sputum patient still have chest pain CT scan of the chest was done shows multiple bilateral pulmonary embolism patient was started on heparin drip admitted to the hospital for further evaluation and treatment 09/20/2022 interval history: 82-year-old male with history of CABG and stroke he was told that his high risk of blood clots, patient is taking Plavix and aspirin at home, patient presented with shortness of breath and hemoptysis is found to have pulmonary emboli started the patient on heparin drip, to further evaluate patient had cardiac echo, did not show any right side heart strain, will continue to monitor switch over to Eliquis or Xarelto today, patient has left upper extremity weakness concern that blood clots may ahve originated from the left arm, will venous dopplor to evaluate and further recommendation to follow. is present in the room answered all her questions (2) CVA (cerebral vascular accident): Code(s): I63.9 - Cerebral infarction, unspecified Status: Acute Assessment and Plan: Pending home medication reconciliation (3) Contusion of right chest wall: Code(s): S20.211A - Contusion of right front wall of thorax, initial encounter Status: Acute Assessment and Plan: Pain control (4) Fall: Code(s): W19.XXXA - Unspecified fall, initial encounter Status: Acute Assessment and Plan: PT OT evaluation (5) Pulmonary embolism: Code(s): I26.99 - Other pulmonary embolism without acute cor pulmonale Status: Acute Assessment and Plan: CT scan as below Multiple bilateral segmental and subsegmental pulmonary emboli, overall moderate clot burden. Occlusive segmental pulmonary emboli present in the right lower lobe where there is likely pulmonary infarct affecting the posterior/basal segments. No current evidence of right heart strain. Small focus of aerated secretion/debris in the upper trachea Follow echo results No evidence of right ventricular strain pattern. Blood pressure stable Complicated decision as patient also has mild hemoptysis which is expected most likely from pulmonary infarct Heparin drip was started Follow CBC Subjective Date/time seen: 09/20/22 14:29 At home patient was on aspirin and Plavix probably resume either aspirin or Plavix as patient now will need oral anticoagulation a.m. team to address once hemoptysis improved HPI-Chief Complaint:shortness of breath and hemoptysis 82 years old male with past medical history of CVA coronary artery disease on aspirin Plavix had a fall area today associated with chest pain was treated for contusion and sent home patient had episode of hemoptysis came back to the ER patient denies large amount of hemoptysis or clots has streaks of blood with sputum patient still have chest pain CT scan of the chest was done shows multiple bilateral pulmonary embolism patient was started on heparin drip admitted to the hospital for further evaluation and treatment 09/20/2022 interval history: 82-year-old male with history of CABG and stroke he was told that his high risk of blood clots, patient is taking Plavix and aspirin at home, patient presented with shortness of [place]
[2022-09-20 15:54] LABS: INR 1.4; Prothrombin Time 16.2 Seconds (11.1-14.7)
[2022-09-20 15:56] LABS: Partial Thromboplastin Time 84.5 SECONDS (22.3-36.8)
[2022-09-20] MEDS: APIXABAN 5 MG TABLET 10 MG PO (21:11)
[2022-09-20] MEDS: SIMVASTATIN 20 MG TABLET 80 MG PO (21:11)
[2022-09-20 22:23] LABS: Hematocrit 32.6 % (42.0-52.0); Hemoglobin 10.7 g/dL (14.0-18.0)
[2022-09-21] VITALS: PULSE 87
[2022-09-21 04:00] VITALS: PULSE 84
[2022-09-21 06:00] VITALS: BP 146/83; PULSE 91; RESP 16; TEMP 36.6; O2SAT 96
[2022-09-21 07:02] LABS: Basophils Percent Auto 0.5 % (0.2-1.2); Eosinophils Absolute Auto 0.1 K/mm3 (0-0.3); Eosinophils Percent Auto 1.3 % (0-4.4); Hematocrit 32.7 % (42.0-52.0); Hemoglobin 10.6 g/dL (14.0-18.0); Immature Granulocyte Absolute 0.03 K/mm3 (0.00-0.031); Immature Granulocyte Percent A 0.4 % (0-0.5); Lymphocytes Absolute Auto 0.99 K/mm3 (0.9-3.2); Lymphocytes Percent Auto 12.4 % (18.3-44.2); Mean Corpuscular HGB Conc 32.4 g/dl (32-36); Mean Corpuscular Hemoglobin 28.7 pg (26-34); Mean Corpuscular Volume 88.6 fl (80-100); Mean Platelet Volume 10.9 fl (7.4-10.4); Monocytes Absolute Auto 1.1 K/mm3 (0.1-0.6); Monocytes Percent Auto 13.2 % (2.6-8.5); Neutrophils Absolute Auto 5.8 K/mm3 (1.3-6.7); Neutrophils Percent Auto 72.2 % (45.5-73.1); Platelet Count Result 175 k/mm3 (150-375); Red Blood Count 3.69 M/mm3 (4.6-6.20); Red Cell Distribution Width 13.5 % (11.5-14.5)
[2022-09-21 07:13] LABS: Alanine Aminotransferase 23 U/L (6-50); Albumin Level 3.3 g/dL (3.5-5.1); Alkaline Phosphatase 63 U/L (38-126); Anion Gap 4 mmol/L (8-16); Aspartate Amino Transferase 29 U/L (17-59); Bilirubin,Total 0.8 mg/dL (0.2-1.3); Blood Urea Nitrogen 19 mg/dL (9-20); Calcium 8.1 mg/dL (8.4-10.2); Carbon Dioxide 26 mmol/L (22-30); Chloride 105 mmol/L (98-107); Estimated CRCL calculation 53 ml/min; Estimated Glomerular Filt Rate > 60; Glucose 103 mg/dL (65-110); Potassium 3.2 mmol/L (3.4-5.0); Sodium 135 mmol/L (137-145)
[2022-09-21 08:00] VITALS: O2SAT 96
[2022-09-21 08:37] VITALS: PULSE 96
[2022-09-21] MEDS: APIXABAN 5 MG TABLET 10 MG PO (08:37)
[2022-09-21] MEDS: DULoxetine HCL 30 MG CAPSULE.DR PO (08:37)
[2022-09-21] MEDS: FAMOTIDINE 20 MG TABLET PO (08:37)
[2022-09-21] MEDS: ASPIRIN 81 MG CHEWABLE TABLET PO (08:37)
[2022-09-21] MEDS: guaiFENesin 12 HR 600 MG TABCR PO (08:37)
[2022-09-21] MEDS: METOPROLOL SUCCINATE EXT REL 25 MG TABCR PO (08:37)
[2022-09-21] MEDS: TAMSULOSIN HCL 0.4 MG CAPSULE PO (08:48)
--- NOTE | 2022-09-21 09:18 | PM.DS ---
DS: Admitting Diagnosis Discharge Date 09/20/2022 Admitting Diagnosis Hemoptysis DS: Discharge Diagnosis Discharge Diagnosis (1) CAD (coronary artery disease): Code(s): I25.10 - Atherosclerotic heart disease of [place] coronary artery without angina pectoris Status: Acute Assessment and Plan: At home patient was on aspirin and Plavix probably resume either aspirin or Plavix as patient now will need oral anticoagulation a.m. team to address once hemoptysis improved HPI-Chief Complaint:shortness of breath and hemoptysis 82 years old male with past medical history of CVA coronary artery disease on aspirin Plavix had a fall area today associated with chest pain was treated for contusion and sent home patient had episode of hemoptysis came back to the ER patient denies large amount of hemoptysis or clots has streaks of blood with sputum patient still have chest pain CT scan of the chest was done shows multiple bilateral pulmonary embolism patient was started on heparin drip admitted to the hospital for further evaluation and treatment 09/20/2022 interval history: 82-year-old male with history of CABG and stroke he was told that his high risk of blood clots, patient is taking Plavix and aspirin at home, patient presented with shortness of breath and hemoptysis is found to have pulmonary emboli started the patient on heparin drip, to further evaluate patient had cardiac echo, did not show any right side heart strain, will continue to monitor switch over to Eliquis or Xarelto today, patient has left upper extremity weakness concern that blood clots may ahve originated from the left arm, will venous dopplor to evaluate and further recommendation to follow. is present in the room answered all her questions (2) CVA (cerebral vascular accident): Code(s): I63.9 - Cerebral infarction, unspecified Status: Acute Assessment and Plan: Pending home medication reconciliation (3) Contusion of right chest wall: Code(s): S20.211A - Contusion of right front wall of thorax, initial encounter Status: Acute Assessment and Plan: Pain control (4) Fall: Code(s): W19.XXXA - Unspecified fall, initial encounter Status: Acute Assessment and Plan: PT OT evaluation (5) Pulmonary embolism: Code(s): I26.99 - Other pulmonary embolism without acute cor pulmonale Status: Acute Assessment and Plan: CT scan as below Multiple bilateral segmental and subsegmental pulmonary emboli, overall moderate clot burden. Occlusive segmental pulmonary emboli present in the right lower lobe where there is likely pulmonary infarct affecting the posterior/basal segments. No current evidence of right heart strain. Small focus of aerated secretion/debris in the upper trachea Follow echo results No evidence of right ventricular strain pattern. Blood pressure stable Complicated decision as patient also has mild hemoptysis which is expected most likely from pulmonary infarct Heparin drip was started Follow CBC DS: Summary Hospital Course Reason for hospitalization: 82 years old male with past medical history of CVA coronary artery disease on aspirin Plavix had a fall area today associated with chest pain was treated for contusion and sent home patient had episode of hemoptysis came back to the ER patient denies large amount of hemoptysis or clots has streaks of blood with sputum patient still have chest pain CT scan of the chest was done shows multiple bilateral pulmonary embolism patient was started on heparin drip admitted to the hospital for further evaluation and treatment Hospital Course: ?82-year-old male with history of CABG and stroke he was told that his high risk of blood clots, patient is taking Plavix and aspirin at home,? patient presented with shortness of breath and hemoptysis is found to have pulmonary emboli started the patient on heparin drip, to further evaluate patient had cardiac ec
== END 2022-09-21 11:21 | disposition home or self-care (01) | DRG 176 ==
LOC: ANHED 23:27 → ANH3MEDSUR 09-19 00:01
PROVIDERS: Admitting Provider Internal Medicine; Emergency Provider Emergency Medicine; PCP Physician Assistant; Visit Provider Family Medicine
DX: I26.99 Other pulmonary embolism without acute cor pulmonale (principal); R04.2 Hemoptysis; I69.354 Hemiplegia and hemiparesis following cerebral infarction affecting left non-dominant side; I26.94 Multiple subsegmental thrombotic pulmonary emboli without acute cor pulmonale; Z20.822 Contact with and (suspected) exposure to COVID-19; I25.10 Atherosclerotic heart disease of native coronary artery without angina pectoris; S20.211A Contusion of right front wall of thorax, initial encounter; W05.0XXA Fall from non-moving wheelchair, initial encounter; Z79.02 Long term (current) use of antithrombotics/antiplatelets; Z79.82 Long term (current) use of aspirin; Z95.1 Presence of aortocoronary bypass graft
CPT/HCPCS: 36415; 70450; 71045; 71275; 72125; 80053; 81001; 83605; 83690; 83735; 83880; 84484; 85014; 85018; 85025; 85610; 85730; 87637; 92611; 93970; 93971; 96361; 99284; 99285; A9270; C8929; J1644; J7030; Q9957; Q9967

== ENCOUNTER 2022-12-04 11:15 | Outpatient (RCR) | payer MEDICARE, OTHER, SELFPAY ==
[2022-09-13 15:10] VITALS: BP_SYST 90
--- NOTE | 2022-09-13 15:28 | PCPTNOTE ---
This treatment is being continued from visit number [id number]. Please see documentation on both accounts to view progress. Completed interventions, outcomes, and problems have been marked as Inactive to facilitate the copying of the Care plan routine for recurring accounts.
--- NOTE | 2022-09-13 15:54 | PCOTNOTE ---
This treatment is being continued from visit number [id number]. Please see documentation on both accounts to view progress. Completed interventions, outcomes, and problems have been marked as Inactive to facilitate the copying of the Care plan routine for recurring accounts.
--- NOTE | 2022-09-19 07:26 | PCOTNOTE ---
Late note from yesterday - Patient's called and cancelled tx due to patient falling the night before.
--- NOTE | 2022-10-01 10:01 | PCOTNOTE ---
Aquatic session today was held and patient was seen on land instead. Patient was recently hospitalized with blood clots in his lungs and it was deemed unsafe to get in the pool at this time.
--- NOTE | 2022-10-08 13:21 | OTOPEVAL1 ---
Assessment and note entered by Froylan Pascual, OTR/Andrea, CHT Evaluation Information Diagnosis CVA Onset 06/2021 Subjective Information João and his reports improved flexibility of the left arm. They state the improved flexibility has made donning shirts and taking showers easier. They report he is in less pain and taking less pain medication. They report improved neck flexibility and report that his field of view has improved, compared to the start of care his head/neck were flexed and rotated down and to the right. Reported Pain Level Pain Score 0: Self Report Assessment OT Clinical Summary João is an 82 year-old male who had a CVA in June of 2021. Since then the upper back/neck, shoulder, and arm have become progressively tight due to non-use and decreased vision on the left side. Since beginning occupational therapy about a month ago, he has made improvements with posture - his head/heck were rotated 45 degrees to the right and today he is only resting at 20 degrees past neutral to the right. He is able to complete active cervical rotation to the left to 30-40 degrees past neutral. He is making more eye contact with conversations and not looking at the floor all the time. The left arm is also more flexible, which has facilitated improved ADLs and having reduced pain during dressing and bathing tasks. He will benefit from continued skilled OT for neck/shoulder/upper extremity stretching, hot packs for improved tissue extensibility, instruction in positioning to reduce further contractures, adaptive ADL techniques to increase independence, and HEP instruction and progression as tolerated. Plan of Care Interventions Therapeutic Exercise,Manual Therapy,Neuro Re- education,Therapeutic Activities,Hot Pack/Cold Pack,Electrical Stimulation,Self-Care/Home Management OT Services Indicated Yes Treatment Frequency and 2x/week for 5 weeks Duration They are out of town for 1 of those weeks. These treatments will address the objective and functional deficits as defined above. The patient will be advanced safely and appropriately in order for the patient to progress towards his/her prior level of function. Additional exercises will be introduced and as well as a comprehensive home exercise program upon discharge, if needed, ?to ensure carryover of functional gains achieved in the clinic. This treatment plan has bee
--- NOTE | 2022-10-08 14:07 | PTOPPROG ---
Assessment and note entered by Fern Orozco, PT Evaluation Information Assessment Status Progress Diagnosis aquatic therapy s/p CVA Onset 2019 CVA Subjective Information João and his Nataliya report: was in the hospital for 4 days with blood clot, given release for return to therapy; weaker since hospitalization--less standing at home with the pole; did have 1 fall since home from the hospital , had to call ambulance for getting him up off the floor; working on decreasing his nap time to 2-3 hours/day instead of 4-5 hr; continues to work with him on standing and transfers, but he is leaning backwards and not doing as well as he was before going to the hospital. Assessment PT Clinical Summary João has received a total of 21 PT sessions. Since the last reevaluation, he has been hospitalized for 4 days due to blood clot in chest . He has declined in his transfers and gait skills since hospitalization. His continues to be his caregiver at home and assists him with mobility and self care. Prior to hospitalization, during PT session, he was walking 50-60' with the hemicane and assist 1. The goals were not achieved. Continue PT to increase ability for sit/stand, transfers, gait and standing balance, to improve his mobility and decrease care required by his . Plan of Care Interventions Aquatic Therapy,Gait Training,Neuro Re-education, Patient/Caregiver Education,Therapeutic Activities, Therapeutic Exercise PT Services Indicated Yes Treatment Frequency and 2x/wk for 5 weeks Duration These treatments will address the objective and functional deficits as defined above. The patient will be advanced safely and appropriately in order for the patient to progress towards his/her prior level of function. Additional exercises will be introduced and as well as a comprehensive home exercise program upon discharge, if needed, ?to ensure carryover of functional gains achieved in the clinic. This treatment plan has been reviewed and agreement upon by the patient.
--- NOTE | 2022-11-12 13:40 | OTOPDC ---
Assessment and note entered by Froylan Pascual, MALLY/Andrea, CHT Evaluation Information Assessment Status Discharge Diagnosis CVA Onset 06/2021 Subjective Information João and his reports improved flexibility of the left arm. They report improved neck ROM which has allowed him to see more of his environment, noting improved ability to see more of the TV. Has been having less pain in the arm, not having to take Tylenol in over 2 weeks. Assessment OT Clinical Summary João is an 82 year-old male who had a CVA in June of 2021. Since then the upper back/neck, shoulder, and arm have become progressively tight due to non-use and decreased vision on the left side. OT has been working on flexibility of the left UE and neck as well as working on improved visual field and left sided awareness through compensatory strategies. At this time he has unfortunately reached a progress plateau. João and his are independent with all home exercises and learned compensatory techniques. No further skilled OT indicated at this time.
--- NOTE | 2022-11-12 14:09 | PTOPPROG ---
Assessment and note entered by Fern Orozco, PT Evaluation Information Assessment Status Progress Diagnosis aquatic therapy s/p CVA Onset 2019 CVA Subjective Information João and Nataliya report: feel like standing is a little better, with the standing pole-legs holding more; in/out car is easier--transfer from w/c to van seat; has been standing with the hemicane at home; reports she is having back pain and goes to the chiropractor 2x/wk for her back. She continues to assist pt with all mobility, transfer and self care tasks. Assessment PT Clinical Summary João has received a total of 28 PT sessions. His continues to be his primary caregiver. She pushes him in the w/c for mobility. Compared to the last reevaluation: his sit/stand transfers, pivot transfer and standing balance are about the same. Discussed at length with pt and that walking is not realistic for pt at this time--he needs to continue working on standing for leg strength and transfer skill, but walking is not functional for him due to decreased strength of L leg and amount of assistance required for short distance of walking. There is a need to educate and initiate sliding board transfers, as a safer and less stressful way for his to transfer him. He tried sliding board transfer early in his rehab and did not continue with them. His sitting balance has improved since initial rehab and sliding board is more functional now for him to use. Goal from his is ease of transfer from w/c to chair and car, so they can go places and get out in the chair lift van. Continue PT to educate and increase ability for sliding board transfer--w/c and car lift seat. Plan of Care Interventions Neuro Re-education,Patient/Caregiver Education, Therapeutic Activities PT Services Indicated Yes Treatment Frequency and 1x/wk for 5 weeks Duration These treatments will address the objective and functional deficits as defined above. The patient will be advanced safely and appropriately in order for the patient to progress towards his/her prior level of function. Additional exercises will be introduced and as well as a comprehensive home exercise program upon discharge, if needed, ?to ensure carryover of functional gains achieved in the clinic. This treatment plan has bee
--- NOTE | 2022-12-06 16:12 | PCPTNOTE ---
This treatment is being continued on visit number [id number]. Please see documentation on both accounts to view progress. Completed interventions, outcomes, and problems have been marked as Inactive to facilitate the copying of the Care plan routine for recurring accounts.
== END 2022-12-06 15:59 | disposition other institution (70) ==
LOC: ANHPT 11:15
PROVIDERS: PCP Physician Assistant; Visit Provider Hospitalist
DX: I63.9 Cerebral infarction, unspecified (principal)
CPT/HCPCS: 97110; 97112; 97113; 97116; 97140; 97530

== ENCOUNTER 2022-12-30 14:30 | Outpatient (RCR) | payer MEDICARE, OTHER, SELFPAY ==
[2022-12-06 15:59] VITALS: BP_SYST 90
--- NOTE | 2022-12-06 16:14 | PCPTNOTE ---
This treatment is being continued from visit number [id number] Please see documentation on both accounts to view progress. Completed interventions, outcomes, and problems have been marked as Inactive to facilitate the copying of the Care plan routine for recurring accounts.
--- NOTE | 2022-12-30 15:27 | PTOPDC ---
Assessment and note entered by Fern Orozco, PT Evaluation Information Assessment Status Discharge Diagnosis s/p CVA Onset 2019 CVA Subjective Information João and report: still recovering from COVID, feel like he is weaker and not walking anymore; using sit/stand transfer machine at home- but less than was, with him and both sick- today only used 2x; has been doing his exercises at home; not using the sliding transfer board-- does not work out for them at home; worried about how to get him up off the floor, if he would fall; Reported Pain Level Pain Score 0: Self Report Assessment PT Clinical Summary João has received a total of 33 sessions. Compared to the last reevaluation--he has not made any changes in his activity level or assist required. Sit/stand transfers are the same, continue to require maximum assist and he has poor standing balance, is not able to take steps. His is doing a great job as his caregiver. She is proactive and looking for use of the sit/ stand machine for lifting him up off the floor and other lifting devices. The goals were met for education, but not mobility /strength/transfer goals. Discharge from PT services. Plan of Care PT Services Indicated No
== END 2022-12-31 08:11 | disposition home or self-care (01) ==
LOC: ANHPT 14:30
PROVIDERS: PCP Physician Assistant; Visit Provider Hospitalist
DX: I63.9 Cerebral infarction, unspecified (principal)
CPT/HCPCS: 97110; 97530